=== PATIENT | male | born 1975 | race African-American/Black ===

== ENCOUNTER 2020-02-17 18:00 | Emergency (ER) | payer OTHER ==
[2020-02-17 18:09] VITALS: BP 119/81
[2020-02-17] MEDS ORDERED: HYDROCODONE/ACETAMINOPHEN 5-325 MG TABLET PO ONE (19:58)
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
== END 2020-02-17 21:10 | disposition home or self-care (01) ==
LOC: ER 18:00
DX: M54.9 Dorsalgia, unspecified (principal); V89.2XXA Person injured in unspecified motor-vehicle accident, traffic, initial encounter; F17.200 Nicotine dependence, unspecified, uncomplicated
CPT/HCPCS: 72070; 72110; 99283